=== PATIENT | male | born 2000 | race Hispanic/Latino ===

== ENCOUNTER 2019-02-15 17:37 | Emergency (ER) | payer BC, OTHER | END 2019-02-15 18:40 | disposition home or self-care (01) | LOC: SCSER 17:37 | DX: S86.811A Strain of other muscle(s) and tendon(s) at lower leg level, right leg, initial encounter (principal); X50.1XXA Overexertion from prolonged static or awkward postures, initial encounter | CPT/HCPCS: 99283 ==